=== PATIENT | male | born 1935 | race Caucasian/White ===

== ENCOUNTER → 2019-09-27 | Outpatient (CLI) | payer MEDICARE, OTHER ==
--- NOTE | 2019-09-27 08:40 | RADIOLOGY REPORT (SQ) ---
EXAM DESCRIPTION: U/S ABDOMEN COMPLETE W/O DOP COMPLETED DATE/TIME: 09/27/2019 7:56 am REASON FOR STUDY: ABN RESULTS OF LFT (R94.5) R94.5 ABNORMAL RESULTS OF LIVER FUNCTION STUDIES COMPARISON: None. TECHNIQUE: Dynamic and static grayscale images acquired of the abdomen and recorded on PACS. Additio nal selected color Doppler and spectral images recorded. Note: Study does not meet criteria for complete doppler/duplex scan LIMITATIONS: Some structures nonvisualized. FINDINGS: PANCREAS: Nonvisualized. LIVER: No masses. Echotexture normal. LIVER VASCULATURE: Normal directional flow of the main portal vein and hepatic veins. GALLBLADDER: No stones. Normal wall thickness. No pericholecystic fluid. ULTRASOUND-DETECTED KUMAR'S SIGN: Negative. INTRAHEPATIC DUCTS AND COMMON DUCT: CBD and intrahepatic ducts normal caliber. No filling defects. INFERIOR VENA CAVA: Normal flow. AORTA: Partially visualized. No visualized aneurysm. RIGHT KIDNEY: Normal in size measuring 9.7 cm Normal echogenicity. No solid masses. There is a exophytic anechoic cyst measuring 3.6 cm off the lower pole. No hydronephrosis. No calcifications . LEFT KIDNEY: Normal size measuring 10.1 cm. There is a anechoic interpolar cyst measuring 2.6 cm. . Normal echogenicity. No solid or suspicious masses. No hydronephrosis. No calcifications. SPLEEN: Normal size measuring 10.4 cm. No solid masses. Splenule noted. PERITONEAL AND PLEURAL SPACES: No ascites or effusions. OTHER: No other significant finding. IMPRESSION: 1. No evidence of acute intra-abdominal process. 2. Incidentally noted bilateral renal cysts, largest measuring 3.6 cm on the right. TECHNICAL DOCUMENTATION: JOB ID: [id number] [employer]- All Rights Reserved Reading location - IP/workstation name: [email or web address]
== END ==
LOC: RAD 07:25
PROVIDERS: ATTEND Internal Medicine Gastroenterology
DX: R94.5 Abnormal results of liver function studies (principal); Q61.02 Congenital multiple renal cysts
CPT/HCPCS: 76700